=== PATIENT | female | born 1985 | race African-American/Black ===

== ENCOUNTER 2019-01-11 14:18 | Inpatient (IN) | payer SELFPAY ==
[2019-01-17 22:13] VITALS: BMI 28.6
[2019-01-17] MEDS ORDERED: Ondansetron PF 4 MG/2 ML Vial IVP PRN (22:18)
[2019-01-17] MEDS ORDERED: Lidocaine 1% (PF) 30 ML VIAL SC PRN (22:18)
[2019-01-17] MEDS ORDERED: Promethazine HCl 25 MG/ML VIAL IM PRN (22:18)
[2019-01-17] MEDS ORDERED: NS / Oxytocin 40 units/1000ml 1,000 ML IV PRN (22:18)
[2019-01-17] MEDS: Lactated Ringer's 1,000 ML IV SCH (22:20)
[2019-01-17 22:42] LABS: Hemoglobin 9.4 g/dL (12.0-16.0); Mean Corpuscular Hemoglobin 29.1 pg (27.0-31.0); Mean Corpuscular Volume 85.6 fL (78.0-98.0); Mean Platelet Volume 7.9 fL (7.4-10.4); Platelet Count 305 thou/uL (130-400); RBC Distribution Width 14.1 % (11.5-14.5); Red Blood Cell (RBC) Count 3.23 mill/uL (4.20-5.40); White Blood Cell (WBC) Count 7.6 thou/uL (4.8-10.8)
[2019-01-17 23:22] LABS: HBSAg Index 0.32 S/CO (0-0.99); Hep B Surf Ag Non-Reactive S/CO (NonReactive); Syphilis Antibody Nonreactive (Nonreactive); Syphilis Antibody Index 0.04 S/CO (<1.00 Non-Reactive)
[2019-01-18] MEDS: Misoprostol 100 MCG TAB VAG SCH ×3 (00:25→11:07)
--- NOTE | 2019-01-18 00:43 | PDOC.FPROB ---
FMR OB H&P: HPI - History of Present Illness Chief Complaint: Postdates induction of labor Indentification: @ 40.6 weeks by LMP/28.5 wk sono History of Present Illness: Emely Beltran is a @ 40.6 weeks by LMP/28.5 wk sono who presents to L&D for post dates induction. complicated by Sickle cell trait, Possible HSV exposure, advanced maternal age, GBS positive. No complaints at this time. Denies vaginal bleeding, discharge, decrease in FM. Primary Care Physician: Teresa FMR OB H&P: Current - Care : 4 Para: 3 Gestational age: 40.6 Due date: 01/11/2019 Dating Criteria: LMP/28.5 wk sono - OB Labs Blood type: B RH: positive Antibody Screen: negative HIV: negative RPR: negative HepBsAg: negative Rubella: immune Urine drug screen: negative Gonorrhea: negative Chlamydia: negative Pap Smear: NILM/HRHPV + 1 hour gtt: 113 GBS: positive H&H: 9.4/27.7 Platelets: 305 - First Trimester Ultrasound First trimester: Unavailable. - Anatomy Survey Anatomy survey: 28.5 wk US. posterofundal placenta. Normal structures. male fetus. EFW 1328 g, Hadlock 10%, recommended repeat growth. - Additional Ultrasound Additional: Repeat growth @ 31.4 wk US showed EFW of 1499 g, Hadlock 6.9%. MFM referral made , but pt unable to establish care due to cost. Followup growth US @ [facility] 35.1 wk US showed EFW of 2357 g, Hadlock 33.6%;UA with normal S/D ratio FMR OB H&P: History - Past Medical History PMH: Sickle cell trait - Surgical History Sx History: None - Social History Social History: Denies Tobacco, alcohol, and drug use. - Family History Family History: Diabetes in Mom, sister FMR OB H&P: Medications - Current Home Medications: Medication Instructions Recorded Confirmed Type Pnv No.95/Ferrous Fum/Folic AC 1 tab PO DAILY 01/17/19 01/17/19 History [ Vitamins Tablet] Allergies/Adverse Reactions: Allergies Allergy/AdvReac Type Severity Reaction Status Date / Time No Known Allergies Allergy Verified 04/04/19 22:16 FMR OB H&P: ROS - Review of Systems General: reports: recent trauma. denies: fever/chills, weight/appetite/sleep changes Eyes: denies: eye pain ENT: denies: nasal congestion, rhinorrhea Cardiovascular: denies: chest pain, palpitation Respiratory: denies: cough Gastrointestinal: denies: abdominal pain Genitourinary (Female): reports: contractions. denies: incontinence, hematuria Musculoskeletal: denies: pain Neurologic: denies: numbness, headache Integumentary: reports: itching Psychological: denies: depression, anxiety FMR OB H&P: Vital Signs - Maternal Vital signs: Vital Signs - First Documented Temp Pulse Resp BP 98.7 F 90 20 109/62 01/17/19 22:07 01/17/19 22:07 01/17/19 22:07 01/17/19 22:07 - Heart Tones Baseline: 150 Variability: moderate Acceleration: present Deceleration: absent Category: category 1 [place] contractions every: infrequent contractions FMR OB H&P: Physical Exam - Physical Exam General: NAD, awake, alert and oriented HEENT: normocephalic and atraumatic, EOMI Neck: supple Heart: RRR, normal S1/S2 General: CTAB Abdomen: soft, gravid Musculoskeletal: pulses present Neurological: cranial nerves II through XII intact Skin: no rash Lymphatic: no unusual bruising or bleeding - Pelvic Exam Vulva: normal hair distribution, no lesions Cervix: no lesions (sterile spec performed; no vaginal/cervical lesions seen.) SVE: 2/50/-3 Gardiner score: 4 Membranes: intact Presentation: Cephalic (verified by bedside sono) Estimated Weight: 6 lbs FMR OB H&P: Results - Labs Lab results: Laboratory Results - last 24 hr 01/17/19 01/17/19 01/17/19 22:31 22:31 22:31 WBC RBC Hgb Hct MCV MCH MCHC RDW Plt Count MPV Syphilis IgG/IgM Ab Nonreactive Hep Bs Antigen Non-Reactive Blood Type B POSITIVE Antibody Screen NEGATIVE 01/17/19 01/17/19 22:31 23:22 WBC 7.6 RBC 3.23 L Hgb 9.4 L Hct 27.7 L MCV 85.6 MCH 29.1 MCHC 34.0 RDW 14.1 Plt Count 305 MPV 7.9 Syphilis IgG/IgM Ab Hep Bs Antigen Blood Type B POSITIVE Antibody Screen FMR OB H&P: A/P - Problem List (1) Post-dates Current Visit: Yes Status: Acute Code(s): O48.0 - POST-TERM Qualifiers: Post-term type: 40-42 weeks gestation Qualified Code(s): O48.0 - Post-term (2) Sickle cell trait Current Visit: Yes Status: Acute Code(s): D57.3 - SICKLE-CELL TRAIT (3) Positive GBS test Current Visit: Yes Status: Acute Code(s): B95.1 - STREPTOCOCCUS, GROUP B, CAUSING DISEASES CLASSD ELSWHR (4) Advanced maternal age (AMA) in Current Visit: Yes Status: Acute Code(s): [id number] - (5) Multigravida in first trimester Current Visit: Yes Status: Acute Code(s): Z34.81 - ENCOUNTER FOR SUPRVSN OF NORMAL , FIRST TRIMESTER (6) Exposure to herpes simplex virus (HSV) Current Visit: Yes Status: Acute Code(s): Z20.828 - CONTACT W AND EXPOSURE TO OT VIRAL COMMUNICABLE DISEASES Disposition: - Will proceed with cytotec induction of labor. - PCN prophylaxis. - Pt desires epidural @ 4 cm. - Repeat SVE in 3 hours. Discussion: Date/Time: 01/18/1940 This H&P was discussed with Dr. Talbot who agrees with the above documentation and plan. Addendum - Attending - Attending Attestation Date/Time: 01/18/19 9769 I personally evaluated the patient and discussed the management with Dr. Moore. I agree with and repeated the History, Examination, Assessment and Plan documented above with any addition or exceptions noted below. The patient with c/f FGR but with subsequently normal sono's and UAD's reportedly. Proceed with ripening.
[2019-01-18] MEDS ORDERED: Penicillin G Potassium 5 MILL.UNITS in Sodium Chloride 0.9% 100 ML IVPB SCH (03:15)
--- NOTE | 2019-01-18 03:15 | PDOC.OBLPN ---
FMR OB Labor PN: Subj - Interval History Hospital Day: 1 Chief Complaint: None Indentification: 33 yo @ 41.0 wks Interval History: Pt having mild variable decelerations with good recovery FMR OB Labor PN: Obj - Procedures Resuscitative measures: maternal IV fluids, maternal position change FMR OB Labor PN: Exam - Pelvic Exam SVE: /-2, by nurse Membranes: intact FMR OB Labor PN: Data - Labs Lab results: Laboratory Results - last 24 hr 01/17/19 01/17/19 01/17/19 22:31 22:31 22:31 WBC RBC Hgb Hct MCV MCH MCHC RDW Plt Count MPV Syphilis IgG/IgM Ab Nonreactive Hep Bs Antigen Non-Reactive Blood Type B POSITIVE Antibody Screen NEGATIVE 01/17/19 01/17/19 22:31 23:22 WBC 7.6 RBC 3.23 L Hgb 9.4 L Hct 27.7 L MCV 85.6 MCH 29.1 MCHC 34.0 RDW 14.1 Plt Count 305 MPV 7.9 Syphilis IgG/IgM Ab Hep Bs Antigen Blood Type B POSITIVE Antibody Screen FMR OB Labor PN: A/P - Problem List (1) Post-dates Current Visit: Yes Status: Acute Code(s): O48.0 - POST-TERM Qualifiers: Post-term type: 40-42 weeks gestation Qualified Code(s): O48.0 - Post-term (2) Sickle cell trait Current Visit: Yes Status: Acute Code(s): D57.3 - SICKLE-CELL TRAIT (3) Positive GBS test Current Visit: Yes Status: Acute Code(s): B95.1 - STREPTOCOCCUS, GROUP B, CAUSING DISEASES CLASSD ELSWHR (4) Advanced maternal age (AMA) in Current Visit: Yes Status: Acute Code(s): [id number] - (5) Multigravida in first trimester Current Visit: Yes Status: Acute Code(s): Z34.81 - ENCOUNTER FOR SUPRVSN OF NORMAL , FIRST TRIMESTER (6) Exposure to herpes simplex virus (HSV) Current Visit: Yes Status: Acute Code(s): Z20.828 - CONTACT W AND EXPOSURE TO OTH VIRAL COMMUNICABLE DISEASES Disposition: - Will plan for repeat SVE in 2 hrs. - Continue resuscitative measures. - May consider Pit at next check.
[2019-01-18] MEDS: Lactated Ringer's 1,000 ML IV SCH (03:34)
[2019-01-18] MEDS ORDERED: Terbutaline Sulfate 1 MG/ML VIAL ONE (05:48)
--- NOTE | 2019-01-18 06:07 | PDOC.EVN ---
Event Note - Event Note Event Note: Pt with persistent cat II strip despite resuscutative measures and now with tachysystole. SVE unchanged compared to prior. Terbutaline given. Dr. Talbot discussed with patient the need for if strip does not improve. Pt agrees to plan.
--- NOTE | 2019-01-18 06:11 | PDOC.LDPN ---
Labor & Delivery Progress Note - Subjective Subjective: painful contractions - Objective Vital signs reviewed and normal: yes General: NAD, resting Uterine fundus: palpable contractions Dilation: 4 Effacement: 50% Station: -3 FHT: category 2 [place] contractions every: q1m Other exam findings: unruptured; no blood - Assessment (1) Post-dates Code(s): O48.0 - POST-TERM Current Visit: Yes Status: Acute Qualifiers: Post-term type: 40-42 weeks gestation Qualified Code(s): O48.0 - Post-term (2) Sickle cell trait Code(s): D57.3 - SICKLE-CELL TRAIT Current Visit: Yes Status: Acute (3) Positive GBS test Code(s): B95.1 - STREPTOCOCCUS, GROUP B, CAUSING DISEASES CLASSD ELSWHR Current Visit: Yes Status: Acute (4) Advanced maternal age (AMA) in Code(s): [id number] - Current Visit: Yes Status: Acute (5) Multigravida in first trimester Code(s): Z34.81 - ENCOUNTER FOR SUPRVSN OF NORMAL , FIRST TRIMESTER Current Visit: Yes Status: Acute (6) Exposure to herpes simplex virus (HSV) Code(s): Z20.828 - CONTACT W AND EXPOSURE TO OTH VIRAL COMMUNICABLE DISEASES Current Visit: Yes Status: Acute -: Patient with tachysystole; FHTs 140s, recurrent lates, +accels. I have low suspicion for abruption currently, although it remains in the differential. Plan to give terb and reassess. If persistent category 2 strip will proceed with . I discussed this in detail with the patient and her and they voiced understanding and agreement. If reassuring FHTs plan for recheck in 1-2 hours to assess for augmentation. Will monitor closely.
[2019-01-18] MEDS ORDERED: Terbutaline Sulfate 1 MG/ML VIAL SC SCH (06:15)
--- NOTE | 2019-01-18 06:45 | PDOC.EVN ---
Event Note - Event Note Event Note: Patient now with recurrent lates after prior improvement in FHTs. In light of remove from delivery, a now persistent category II strip I have recommended section. After discussion risks of continuing attempts at vaginal delivery vs patient desires to proceed with .
[2019-01-18] MEDS ORDERED: Bicitra 30 ML UDCUP ONE (07:00)
[2019-01-18] MEDS ORDERED: CEFAZOLIN 2 GM in Premix Bag 1 BAG IVPB SCH (07:00)
[2019-01-18] MEDS ORDERED: Bicitra 30 ML UDCUP PO SCH (07:00)
--- NOTE | 2019-01-18 08:06 | PDOC.EVN ---
Event Note - Event Note Event Note: FHTs with mod jairo, + accels, and intermittent decelerations. Anesthesia has been called multiple times previously.
[2019-01-18] MEDS ORDERED: PHENYLEPHRINE-NS 100 MCG/ML 10 ML SYRINGE ONE (08:16)
[2019-01-18] MEDS ORDERED: Oxytocin 10 UNITS/ML VIAL ONE ×2 (08:16→09:15)
[2019-01-18] MEDS ORDERED: MORPHINE 5 MG/10 ML PF VIAL ONE (08:16)
[2019-01-18] MEDS ORDERED: Naloxone HCl 0.4 mg/ml Vial IVP PRN ×2 (08:39)
[2019-01-18] MEDS ORDERED: Eucerin (Mineral Oil/Petrolatum,White) 30 gm Jar TOP PRN (08:39)
[2019-01-18] MEDS ORDERED: Ketorolac Tromethamine 30 MG/ML VIAL IVP PRN (08:39)
[2019-01-18] MEDS ORDERED: Ondansetron HCl/PF 4 MG/2 ML Vial IVP PRN (08:39)
[2019-01-18] MEDS ORDERED: HYDROmorphone 2 MG/ML VIAL SLOW IVP PRN (08:39)
[2019-01-18] MEDS ORDERED: Meperidine HCl/PF 25 MG/ML VIAL SLOW IVP PRN (08:39)
[2019-01-18] MEDS ORDERED: L&D-Morphine 4 MG/ML VIAL SLOW IVP PRN (08:39)
[2019-01-18] MEDS ORDERED: Naloxone HCl 0.4 mg/ml Vial IV PRN (08:39)
[2019-01-18] MEDS ORDERED: Promethazine HCl 25 MG SUPP PR PRN (08:39)
[2019-01-18] MEDS ORDERED: diphenhydrAMINE 50 MG/ML VIAL IVP PRN (08:39)
[2019-01-18] MEDS ORDERED: Ondansetron PF 4 MG/2 ML Vial IVP PRN (08:39)
[2019-01-18] MEDS ORDERED: Promethazine HCl 25 MG/ML VIAL IM PRN (08:39)
[2019-01-18] MEDS ORDERED: Ketorolac Tromethamine 30 MG/ML VIAL IVP SCH (08:45)
[2019-01-18] MEDS ORDERED: Communication Order-Pharmacy FS SCH (08:45)
[2019-01-18] MEDS ORDERED: Ketorolac Tromethamine 30 MG/ML VIAL ONE (09:15)
[2019-01-18] MEDS: Penicillin G 2.5 MILL.units 2.5 MILL.UNITS in Premix Bag 1 BAG IVPB SCH ×2 (11:05→11:06)
--- NOTE | 2019-01-18 14:24 | PDOC.EVN ---
Event Note - Event Note Event Note: Post operative check. HPI: patient states she is have mild pain but it is controlled. Nursing reports small amount of vaginal bleeding. Discussed disposition with patient and her . PE: Vitals: Reviewed. WNL. GEN NAD Abdomen: soft appropriately tender. A&P: - Will start clear liquid diet and advance as tolerated. - Continue NSAIDS scheduled and PRN norco for pain. - Will reassess tomorrow morning. H&H drawn in the AM unless vitals abnormal. Attending Note: Agree with above. Patient reviewed. Uncomplicated PLTCS. Pain controlled on oral pain meds. Advance diet. Hester out when able to ambulate. Dressing off in AM. QBL < 700 mL. Started case with iron deficency anemia depending on AM drop will discuss iron replacement options with patient. Continue to monitor throughout the night. Noah
--- NOTE | 2019-01-18 17:03 | OP ---
DATE OF PROCEDURE: 01/18/2019 PRIMARY SURGEON: Larry Hua MD TOLL SETTLEMENT CLERK SURGEON: Judith Gardner MD. ATTENDING SURGEON: Juan Talbot MD PROCEDURE PERFORMED: Primary low-transverse section. ANESTHESIA: Spinal. QUANTITATIVE BLOOD LOSS: 680 mL. PREPROCEDURAL DIAGNOSES: 1. Term intrauterine . 2. Non-reassuring heart tones including recurrent late decelerations with augmentation of labor. 3. Remote from delivery. 4. Advanced maternal age. 5. History of sickle cell trait. 6. GBS positive 7. History of herpes simplex virus exposure with no active lesions at time of induction. POSTPROCEDURE DIAGNOSES: 1. Term intrauterine , delivered. 2. Non-reassuring heart tones including recurrent late decelerations with augmentation of labor. 3. Remote from delivery. 4. Advanced maternal age. 5. History of sickle cell trait. 6. GBS positive 7. History of herpes simplex virus exposure with no active lesions at time of induction. INDICATIONS: Ms. Beltran is a 33-year-old, 4, para 3-0-0-3 at 41.0 weeks dated by her last menstrual period, which was consistent with a 28.5 week ultrasound. She presented for Cytotec induction indicated for postdates . She has a history of sickle cell trait, possible HSV exposure, GBS positive, and advanced maternal age. The patient received one dose of Cytotec. This induced contractions. However, the heart tracing begin to show recurrent late decelerations. Terbutaline was given to stop the contractions, which allowed for resolution of mostly decelerations. The patient again is tracked on her own again and developed late decelerations again. At this time, it was felt that given her current cervical dilation that she would not be able to successfully undergo vaginal delivery due to being remote from delivery and the current heart tracing. Discussion was had with the patient, who agreed to proceed with primary section for delivery. PROCEDURE IN DETAIL: Informed consent was obtained after risks, benefits, alternatives were obtained. The patient received preoperative antibiotics of Ancef 2 g IV. She was taken to the operating room and spinal anesthesia was initiated. She was placed in the supine position with left lateral tilt and prepped and draped in the usual sterile fashion. A Pfannenstiel incision was made with a scalpel, which was carried down to the level of fascia, which was then sharply nicked. All subcutaneous bleeding vessels were cauterized with the Bovie at this time. The fascia was then bluntly dissected in the superolateral direction bilaterally. The superior and inferior edges of the fascia were elevated and bluntly dissected away from the underlying rectus muscles. The rectus muscles were divided digitally and retracted manually. The peritoneum was entered bluntly and also retracted manually. An Jai O retractor was then placed providing optimal visualization of the lower uterine segment. A clean scalpel was used to make a low transverse score, which was carried down in the midline sharply. Clear fluid was noted to be coming from the amniotic sac. The hysterotomy was extended manually in the caudocranial fashion. Head was found to be in the occiput posterior position and was easily elevated to the level of the hysterotomy. The head and body were delivered through the hysterotomy without difficulty using fundal pressure. Delayed cord clamping was utilized for 30 seconds before the cord was clamped, cut, and the infant was taken to the waiting [facility]uscitative Team. Cord blood was collected at this time. The placenta spontaneously delivered with gentle traction on the umbilical cord. The uterus was then exteriorized and curetted with 2 dry laparotomy sponges. The apices and lower segment of the hysterotomy were identified and clamped with sponge sticks. The uterus was then re-internalized and primary hysterotomy closure was performed using #1 Monocryl in a running locking fashion. A second imbricating layer was then performed using #1 Monocryl in a running nonlocking fashion. The hysterotomy was inspected and noted to be hemostatic. The Jai O retractor was removed and the hysterotomy was inspected one final time and noted to be hemostatic. The peritoneum was reapproximated using a #2-0 Vicryl in the running fashion. The piriformis muscles were reapproximated using a simple interrupted #2 Vicryl suture. The fascia was reapproximated using a 0 PDS. Subcutaneous tissues were irrigated and inspected and found to be free of bleeding vessels. Skin was reapproximated with a 4-0 Monocryl subcuticular stitch. Dermabond was then applied over the incision. Counts were correct x3. The patient tolerated the procedure well and went to the unit after routine care and recovery. FINDINGS: 1. Grossly normal viable male infant, born at 0944 hours with Apgars of 8 and 9 and weight of 7 pounds 0 ounces. 2. Grossly normal-appearing anatomy. 3. Placenta with 3-vessel cord noted to have marked calcifications of the cotyledons. This was sent to Pathology. 4. Hester catheter draining clear urine pre and postoperatively. 5. Quantitative blood loss of [address] Talbot was present in the operating room for the entire case. Job ID: [id number] MTDD
[2019-01-18] MEDS ORDERED: HYDROcodone/Acetaminophen 5/325 mg Tablet PO PRN ×2 (20:45)
[2019-01-19] MEDS ORDERED: Ibuprofen 800 MG TAB PO PRN (00:55)
[2019-01-19] MEDS ORDERED: diphenhydrAMINE 25 MG CAP PO PRN (00:57)
[2019-01-19] MEDS: Ibuprofen 800 MG TAB PO SCH ×3 (01:00→16:53)
[2019-01-19 06:09] LABS: Hemoglobin 8.7 g/dL (12.0-16.0); Mean Corpuscular HGB CONC 33.9 g/dL (32.0-36.0); Mean Corpuscular Hemoglobin 29.5 pg (27.0-31.0); Mean Platelet Volume 7.2 fL (7.4-10.4); Platelet Count 238 thou/uL (130-400); RBC Distribution Width 14.2 % (11.5-14.5); Red Blood Cell (RBC) Count 2.95 mill/uL (4.20-5.40); White Blood Cell (WBC) Count 6.5 thou/uL (4.8-10.8)
--- NOTE | 2019-01-19 06:10 | PDOC.OBPPN ---
FMR OB PN: Subj - Interval History Hospital Day: 2 Day: 1 Indentification: 33 year old female Interval History: 1 day PP s/p PLTCS due to NRFHT FMR OB PN: Obj - Maternal Vital signs: BP: 103/60 HR: 71 RR: 18 T: 97.7 Pox: 98% on RA Wt: 75.75 kg - Urine output I&O: 01/17/19 01/18/19 01/19/19 06:59 06:59 06:59 Intake Total 500 Output Total 3150 Balance -2650 - Pain Management Intervention: oral medication FMR OB PN: Exam - Physical Exam General: NAD, awake, alert and oriented Heart: RRR, normal S1/S2 General: CTAB, no respiratory distress Abdomen: soft, non-tender, other (incision covered with banadages) Musculoskeletal: normal gait and station : bandage intact, appropriately tender - Pelvic Exam : normal lochia FMR OB PN: Data - Labs Lab results: Hemoglobin: 8.7 (9.4) Hematocrit: 25.6 (27.7) FMR OB PN: A/P - Problem List (1) Post-dates Current Visit: Yes Status: Acute Code(s): O48.0 - POST-TERM Qualifiers: Post-term type: 40-42 weeks gestation Qualified Code(s): O48.0 - Post-term (2) Sickle cell trait Current Visit: Yes Status: Acute Code(s): D57.3 - SICKLE-CELL TRAIT (3) Positive GBS test Current Visit: Yes Status: Acute Code(s): B95.1 - STREPTOCOCCUS, GROUP B, CAUSING DISEASES CLASSD ELSWHR (4) Advanced maternal age (AMA) in Current Visit: Yes Status: Acute Code(s): [id number] - (5) Multigravida in first trimester Current Visit: Yes Status: Acute Code(s): Z34.81 - ENCOUNTER FOR SUPRVSN OF NORMAL , FIRST TRIMESTER (6) Exposure to herpes simplex virus (HSV) Current Visit: Yes Status: Acute Code(s): Z20.828 - CONTACT W AND EXPOSURE TO OTH VIRAL COMMUNICABLE DISEASES Disposition: Patient doing well this AM. Ambulating and tolerating PO. Pain controlled with Ibuprofen. Bonding well with baby She does not feel like her milk has come in yet. Pt encouraged to continue to try. Pt still contemplating PP contraception. Thinking about Paraguard. Regarding iron deficiency anemia, slight decrease in Hgb post-op, but pt asymptomatic. Will encourage Iron rich foods. Likely discharge tomorrow. Discussion: Date/Time: 01/19/19 0608 This H&P was discussed with Dr. Tee who agrees with the above documentation and plan. Addendum - Attending - Attending Attestation Date/Time: 01/19/19 [id number] I personally evaluated the patient and discussed the management with Dr. Drew I agree with the History, Examination, Assessment and Plan documented above with any addition or exceptions noted below. 33 yo female s/p PLTCS for persistent cat II tracing remote from delivery HD#2 POD#1 Patient doing well this morning. Requesting early discharge if able. Pain controlled on PO medication. Ambulating in room. Breast feeding. Lochia mild. Bandage in place and dry. VS reviewed. Labs reviewed. NAD. RRR. No murmurs. CTAB. No wheezing. Fundus nontender. Firm. 1. s/p PLTCS: Monitor pain control. Meeting milestones. Continue to encourage ambulation. Bandage to be removed today. If able to care for self at home and breast feeding well will consider d/c to home. 2. AMA 3. Sickle cell trait 4. Iron def anemia: Replace with oral. Asymptomatic. Worsened due to acute blood loss. H&H change appropriate. 5. GBS pos: Treated > 4 hours. Adequately treated. Earlier not sure if PCN given during labor but confirmed with pharmacy. 6. Contraception: OCPs. Dispo: If meeting all mile stones. Pain controlled. Breast feeding well. Possible d/c to home this afternoon. Will need follow up in 1 wk for incision check with PCP. Noah
[2019-01-19] MEDS ORDERED: Adacel (T-DAP) 0.5 ML SYRINGE IM ONE (09:00)
[2019-01-19] MEDS ORDERED: Ketorolac Tromethamine 30 MG/ML VIAL ONE (10:52)
[2019-01-19] MEDS ORDERED: Ferrous Fumarate 324 MG TAB PO SCH (12:00)
[2019-01-19 18:09] VITALS: BP 107/62; TEMP 98.4
[2019-01-20] MEDS ORDERED: Ferrous Fumarate 324 MG TAB PO SCH (08:00)
== END 2019-01-19 17:35 | disposition home or self-care (01) | DRG 787 ==
LOC: L&D 01-17 21:04 → 3SW 01-18 12:09
PROVIDERS: ADMIT Family Medicine; ATTEND Family Medicine
PROC: 10D00Z1 Extraction of Products of Conception, Low, Open Approach (ICD-10-PCS; principal; 2019-01-18)
DX: O48.0 Post-term pregnancy (principal); D62 Acute posthemorrhagic anemia; O99.824 Streptococcus B carrier state complicating childbirth; O76 Abnormality in fetal heart rate and rhythm complicating labor and delivery; O99.02 Anemia complicating childbirth; O09.523 Supervision of elderly multigravida, third trimester; D50.9 Iron deficiency anemia, unspecified; D57.1 Sickle-cell disease without crisis; Z37.0 Single live birth; Z3A.40 40 weeks gestation of pregnancy
CPT/HCPCS: 36415; 51702; 85027; 86780; 86850; 86900; 86901; 87340; J1885; J2270; J2540; J2590; J3105; J7050